=== PATIENT | female | born 1940 | race Caucasian/White ===

== ENCOUNTER → 2021-10-16 | Outpatient (CLI) | payer MEDICARE ==
--- NOTE | 2021-10-16 14:24 | XR ---
EXAMINATION TYPE: XR Hip Bilateral and AP pelvis DATE OF EXAM: 10/16/2021 COMPARISON: NONE HISTORY: Fall at home TECHNIQUE: A single AP view of the pelvis is obtained. Two views of each hip are obtained. FINDINGS: Osteopenia. Moderate degenerative changes of the hip joints, slightly more on the left side. No femor al head dislocation or significant subluxation. No definite acute pelvic bone or hip fracture identif ied. Degenerative changes of the lower lumbar spine, sacroiliac joints and symphysis pubis. Bilateral pelv ic phleboliths rather than urinary calculi. Arterial atherosclerotic calcifications. Fecal loading of the visualized portion of the colon. IMPRESSION: There is no acute fracture or dislocation in the pelvis or the hips. Degenerative change s and other incidental findings as described above.
[2021-10-16 17:41] LABS: HCT 39.5 % (37.2-46.3); HGB 12.9 g/dL (12.0-15.0); MCH 31.1 pg (27.0-32.0); MCHC 32.7 g/dL (32.0-37.0); MCV 95.2 fL (80.0-97.0); Mean Platelet Volume 10.4 fL (9.5-12.2); NRBC Per 100 WBC 0 /100 WBCS (0.0-0.0); Platelet Count 241 X 10*3/uL (140-440); RBC 4.15 X 10*6/uL (4.10-5.20); RDW 11.8 % (11.5-14.5); WBC 7.91 X 10*3/uL (4.50-10.00)
[2021-10-16 18:36] LABS: African American GFR (CKD) 41.9 (60.0-200.0); Albumin 4.3 g/dL (3.8-4.9); Albumin/Globulin Ratio 1.53 (1.60-3.17); BUN/Creat Ratio 19.56 Ratio (12.00-20.00); Blood Urea Nitrogen 26.6 mg/dL (9.0-27.0); Calcium 9.9 mg/dL (8.7-10.3); Carbon Dioxide 24.3 mmol/L (20.0-27.5); Globulin 2.8 g/dL (1.6-3.3); Non-African American GFR(CKD) 36.2 (60.0-200.0); Phosphorus 3.6 mg/dL (2.4-5.1); Potassium 4.3 mmol/L (3.5-5.5); Total Bilirubin 0.5 mg/dL (0.30-1.20); Total Protein 7.2 g/dL (6.2-8.2)
== END | disposition home or self-care (01) ==
LOC: RADXRMAIN 11:33
PROVIDERS: ATTEND Internal Medicine
DX: M16.0 Bilateral primary osteoarthritis of hip (principal); M47.816 Spondylosis without myelopathy or radiculopathy, lumbar region; M46.1 Sacroiliitis, not elsewhere classified; E11.22 Type 2 diabetes mellitus with diabetic chronic kidney disease; E11.51 Type 2 diabetes mellitus with diabetic peripheral angiopathy without gangrene; Z79.4 Long term (current) use of insulin; N18.30 Chronic kidney disease, stage 3 unspecified; W19.XXXA Unspecified fall, initial encounter
CPT/HCPCS: 36415; 73521; 80053; 82306; 83970; 84100; 85027